=== PATIENT | male | born 1960 | race Caucasian/White ===

== ENCOUNTER → 2023-08-09 | Outpatient (CLI) | payer MEDICARE ==
[~2023-08-09] MED LIST: 00186-0370-20 IH; ALBUTEROL0.83 MG/ML IH; ALDACTONE 25MG25 M1 PO; ATROVENT I0.2 MG/1 M IH; BROVANA15 MCG/2 M IH; CORDARONE200 MG/TAB PO; COUMADIN 3MG3 MG/TAB PO; COUMADIN 5MG5 MG/TAB PO; COUMADIN 77.5 MG/TAB PO; DESYREL 50MG50 MG PO; LASIX 40MG TABL40 MG PO; MONODOX100 PO; NICODERM C14 MG/PATC TD; NORCO 325 MG-51 TAB PO; OXYGEN NASAL.CANN; PACERONE200 MG PO; PREDNISONE10 MG PO; PROAIR HFA0.09 MG/AC IH; RT SPIRIVA18 MCG IH; SPIRIVA RE2.5 MCG/Ac IH; TOPROL XL 50MG50 MG PO
[2023-08-09 13:36] LABS: ARTERIAL BLD GAS O2 SATURATION 82.5 % (92-100); ARTERIAL BLD GAS TCO2 CT 40.2; ARTERIAL BLOOD GAS BASE EXCESS 10.5 (-2-2); ARTERIAL BLOOD GAS HCO3 38.2 meq/L (22-26)
[2023-08-09 13:37] LABS: ARTERIAL BLOOD GAS PO2 43.2 mmHg (80-100)
== END ==
LOC: CANSCHCLI → MHCCARDP 13:00 → COL.PUL 13:00 → MHCCARDP 13:02
PROVIDERS: Internal Medicine Pulmonary Disease
DX: J44.9 Chronic obstructive pulmonary disease, unspecified (principal)

== ENCOUNTER 2023-11-28 21:20 | Emergency (ER) | payer MEDICARE ==
[~2023-11-28] VITALS: Ht 180.3 cm; Wt 118.2 kg
[2023-11-28 21:25] VITALS: TEMP 97.1
[2023-11-28 21:56] LABS: BASO # 0.1 K/mm3 (0.0-0.2); BASO % 0.5 % (0.0-2.0); EOS # 0.1 K/mm3 (0.0-0.7); EOS % 1.2 % (0.0-4.0); GRAN # 7.5 K/mm3 (1.4-6.5); HEMOGLOBIN 15.5 g/dl (13.5-18.0); LYMPH # 1.7 K/mm3 (1.2-3.4); LYMPH % 16.6 % (20.0-51.0); MEAN CELL VOLUME 103 fl (80.0-100.0); MEAN CORPUSCULAR HEMOGLOBIN 33 pg (27-31); MEAN CORPUSCULAR HGB CONC 32 g/dl (33.0-37.0); MEAN PLATELET VOLUME 12.2 fl (7.4-10.4); MONO % 9.3 % (1.7-9.3); PLATELET COUNT 143 K/mm3 (130-400); RED BLOOD COUNT 4.77 M/mm3 (4.20-5.60); REDCELL DISTRIBUTION WIDTH-CV 13.3 % (11.5-14.5)
[2023-11-28] MEDS ORDERED: Albuterol/Ipratropium 3 MG-0.5 MG/3 ML Neb Soln IH SCH (22:00)
[2023-11-28 22:01] LABS: INR 1.7 (0.8-3.0); PROTHROMBIN TIME 18.5 SECONDS (9.7-12.8)
[2023-11-28 22:04] LABS: PARTIAL THROMBOPLASTIN TIME 33.9 SECONDS (26.0-37.0)
[2023-11-28 22:12] LABS: ALANINE AMINOTRANSFERASE 22 U/L (0-55); ALBUMIN 3.9 gm/dL (3.4-4.8); ALKALINE PHOSPHATASE 70 U/L (40-150); ANION GAP 14 mmol/L (7-16); AST,SGOT 22 U/L (5-34); BILIRUBIN,TOTAL 0.5 mg/dL (0.2-1.2); BLOOD UREA NITROGEN 15 mg/dL (8-26); C-REACTIVE PROTEIN 1.95 mg/dL (0.00-0.50); CALCIUM 9.3 mg/dL (8.4-10.2); CARBON DIOXIDE 34 mmol/L (23-31); CREATININE, serum 1.31 mg/dL (0.72-1.25); GLUCOSE 210 mg/dL (70-99); POTASSIUM 3.9 mmol/L (3.5-4.5); SODIUM 136 mmol/L (136-145); TOTAL PROTEIN 7.8 gm/dL (6.2-8.1)
[2023-11-28 22:15] LABS: CHLORIDE 88 mmol/L (98-107)
[2023-11-28 22:21] LABS: TROPONIN-I < 0.010 ng/mL (0.00-0.033)
[2023-11-29] MEDS ORDERED: methylPREDNISolone Sod Succ 125 MG/2 ML VIAL IV ONE (01:15)
[2023-11-29] MEDS ORDERED: PREDNISONE20 MG PO (02:19)
[2023-11-29] MEDS ORDERED: AMOXICILLIN 8751 TAB PO (02:19)
[2023-11-29] MEDS ORDERED: IPRATROPIUM BROM3 M1 IH (02:19)
[2023-11-29 02:34] VITALS: BP 111/63; PULSE 71
--- NOTE | 2023-11-29 15:02 | NUR ---
magazine worker was contacted to follow up with this patient whom discharged home early this morning regarding concerns of the patient's living conditions and non-compliant with medications/treatment. SW attempted to contact patient, [facility]. SW contacted patient's PCP office, [facility] with Dr. Abbott. Noelleprem LunaIGNACIA at Lamonte Pink's office expressed they assisted patient with obtaining a powerized wheelchair recently and he had a recent appointment with Dr. Abbott. Patient has been on 6 liters of oxygen at baseline and should be utilizing a nebulizer. SW updated Noelle that patient was at the ER for breathing concerns and that he reported to not utilizing his nebulizer. SW contacted [facility] whom supply patient's oxygen to determine if they have had any concerns regarding patient's living conditions. Home medical expressed they did not remember anything notable for concerns. Home medical expressed they have not had a ticket to service patient's needs since June 2023. SW contacted Jesenia Rocha, financial counselor, whom reviewed [employer] and informed the social service director she did not see him active with Medicaid. SW contacted the patient to discuss above concerns and provide information on services. PCP is Dr. Abbott, pharmacy is [place]. Patient reports he does not have any local family support but his neighbor helps him. SW asked about what agency services his oxygen and when they serviced last, patient stated he does not know and the social service director should speak with his neighbor Tessa. Patient asked if she was the one that would set up people to come into his home to clean. SW expressed home health could come in and assist with PT/OT and nursing and that would be covered by his Medicare but cleaning services would not be covered by Medicare. Patient reports he is confused and starting to get upset because did not understand. Patient demanded the social service director speak with Tessa his neighbor and explain it to her because he did not understand and he was getting frustrated. Patient gave IGNACIA Zarate's number [phone]. IGNACIA contacted wade Zarate. Tessa expressed she assists patient with paying his bills, scheduling appointments, transporting him to appointments and was working with him on medication management but he was doing well until about a month ago with his medications/treatments. Tessa reports she spent 2.5 hours cleaning patient's apartment yesterday and took 6 large bags of trash out of the home. Tessa reported that last time she cleaned his bathroom there was feces on the floor, huang and toilet. Tessa expressed all of the residents have a button in case of emergencies. Tessa expressed she took patient to his PCP last week for the follow up. IGNACIA explained home health services and how to look up agencies via Medicare.gov. Tessa expressed she would review this information with the patient in person. Tessa also monitors his voice calls to ensure he does not miss any appointments. IGNACIA mentioned patient was uncertain when Home Medical serviced patient's oxygen last but it may be beneficial to contact them. Tessa expressed she would assist him with this. Tessa confirmed patient has [employer] through [employer] # [phone]. Tessa reports she will mention home health services and cleaning services to patient's PCP at next follow up if patient was in agreement. IGNACIA left a message with IGNACIA Nath at [facility]. IGNACIA contacted patient's daughter, Anastasiia, and provided updates with the information above. Anastasiia lives out of state but would be willing to be DPOA-HC if patient was wanting to establish one. Anastasiia expressed before the patient moved from [place] they were working to establish his DPOA-HC but it was not completed before he moved. IGNACIA made a [facility] report regarding these concerns. DCF intake ID: [id number]
--- NOTE | 2023-11-30 18:08 | NUR ---
fiber worker received a call back from Noelle Luna at [facility]. SW provided the updated information she had received from the neighbor the day prior. Noelle expressed there was a note in their system about patient requesting [facility], so that may be established soon. IGNACIA also notified Noelle that she made an APS report for concerns of patient's home. Noelle expressed they would follow up with the patient to determine if he wanted to establish a DPOA-HC. No further questions or concerns at this time.
== END 2023-11-29 02:34 | disposition home or self-care (01) ==
LOC: COL.ER 21:20
PROVIDERS: Emergency Medicine
DX: J44.1 Chronic obstructive pulmonary disease with (acute) exacerbation (principal); J43.9 Emphysema, unspecified; F17.210 Nicotine dependence, cigarettes, uncomplicated; Z99.81 Dependence on supplemental oxygen
CPT/HCPCS: J2543; J2930

== ENCOUNTER 2024-08-22 10:57 | Emergency (ER) | payer MEDICARE ==
[~2024-08-22] VITALS: Ht 177.8 cm; Wt 113.6 kg
[~2024-08-22 10:57] MED LIST changes: +AMOXICILLIN 8751 TAB PO; +IPRATROPIUM BROM3 M1 IH; +PREDNISONE20 MG PO
[2024-08-22 11:09] VITALS: TEMP 98
[2024-08-22] MEDS ORDERED: methylPREDNISolone Sod Succ 125 MG/2 ML VIAL IV ONE (11:45)
[2024-08-22] MEDS ORDERED: Albuterol/Ipratropium 3 MG-0.5 MG/3 ML Neb Soln IH ONE (11:45)
[2024-08-22 11:57] LABS: BASO # 0.1 K/mm3 (0.0-0.2); BASO % 0.8 % (0.0-2.0); EOS # 0.1 K/mm3 (0.0-0.7); EOS % 1.6 % (0.0-4.0); GRAN # 5.4 K/mm3 (1.4-6.5); GRAN % 62.6 % (42.2-75.2); HEMATOCRIT 44.3 % (42.0-52.0); HEMOGLOBIN 14.1 g/dl (13.5-18.0); LYMPH % 22.7 % (20.0-51.0); MEAN CELL VOLUME 100 fl (80.0-100.0); MEAN CORPUSCULAR HEMOGLOBIN 32 pg (27-31); MEAN CORPUSCULAR HGB CONC 32 g/dl (33.0-37.0); MEAN PLATELET VOLUME 11.2 fl (7.4-10.4); MONO % 11.5 % (1.7-9.3); PLATELET COUNT 204 K/mm3 (130-400); RED BLOOD COUNT 4.43 M/mm3 (4.20-5.60)
[2024-08-22 12:14] LABS: ALBUMIN 3.8 g/dL (3.4-4.8); BILIRUBIN,TOTAL 0.4 mg/dL (0.2-1.2); C-REACTIVE PROTEIN 1.88 mg/dL (0.00-0.50); CALCIUM 9.1 mg/dL (8.4-10.2); CREATININE, serum 1.03 mg/dL (0.72-1.25); TOTAL PROTEIN 7.1 g/dl (6.2-8.1)
[2024-08-22] MEDS ORDERED: PREDNISONE50 MG PO (12:48)
[2024-08-22] MEDS ORDERED: DOXYCYCLINE 10100 MG PO (12:48)
[2024-08-22 14:45] VITALS: BP 118/48; PULSE 98
== END 2024-08-22 14:45 | disposition home or self-care (01) ==
LOC: COL.ER 10:57
PROVIDERS: Emergency Medicine
DX: J40 Bronchitis, not specified as acute or chronic (principal); J44.1 Chronic obstructive pulmonary disease with (acute) exacerbation; F17.200 Nicotine dependence, unspecified, uncomplicated
CPT/HCPCS: J2919